=== PATIENT | female | born 1990 | race Caucasian/White ===

== ENCOUNTER 2019-08-20 12:37 | Emergency (ER) | payer MEDICAID ==
[~2019-08-20] VITALS: Ht 165.1 cm; Wt 75.0 kg
[2019-08-20 12:42] VITALS: BP 121/80
== END 2019-08-20 13:33 | disposition home or self-care (01) ==
LOC: ED 13:27
DX: H66.93 Otitis media, unspecified, bilateral (principal); R05 Cough; J45.909 Unspecified asthma, uncomplicated; F17.200 Nicotine dependence, unspecified, uncomplicated
CPT/HCPCS: 71046; 99283

== ENCOUNTER 2020-01-30 02:18 | Emergency (ER) | payer MEDICAID ==
[~2020-01-30] VITALS: Ht 167.6 cm; Wt 80.0 kg
--- NOTE | 2020-01-30 02:24 | NUR ---
Pt presents to ed c/o trying to help friend and friend fell on pt. [place] a pop on LL back and immediate shooting pain down to L knee and seizing of muscles in back. Unable to move any part of body d/t pain and ridgid in bed, talking minimally from pain. Denies incontinence. Denies numbness tingling in extremity. Able to wiggle toes and minimal movement at knee--d/t pain. Given 200 mcg fentanyl en route via ems w/ no relief. ERP at bedside upon admit to ed. Awaiting orders.
[2020-01-30] MEDS ORDERED: DIAZEPAM 5 MG/ML, 2ML ONE (02:28)
[2020-01-30] MEDS ORDERED: KETOROLAC 30 MG/1 ML ONE (02:28)
[2020-01-30] MEDS ORDERED: KETOROLAC 30 MG/1 ML IVPush ONE (02:30)
[2020-01-30] MEDS ORDERED: LIDODERM 5% PATCH TD ONE ×2 (02:30→02:40)
[2020-01-30] MEDS ORDERED: DIAZEPAM 5 MG/ML, 2ML IVPush ONE (02:30)
[2020-01-30] MEDS ORDERED: SODIUM CHLORIDE FLUSH 10ML SYR IVF ONE (02:30)
[2020-01-30 02:51] VITALS: BP 123/66
--- NOTE | 2020-01-30 02:52 | NUR ---
Pt bedside report to Nandini WELLER.
--- NOTE | 2020-01-30 03:00 | NUR ---
report from JANEE ayala
--- NOTE | 2020-01-30 04:00 | NUR ---
pt ambulatory to wheelchair independently.
--- NOTE | 2020-01-30 04:02 | NUR ---
pt sleeping on gurney. when awoken, pt sobbing. significant other here for same, discharged and taking pt to discharge desk. pt crying becuase of back pain. significant other angry at staff, saying "we should have gone to a different hospital. they didnt do shit for us here"
--- NOTE | 2020-01-30 04:22 | NUR ---
upon discharge pt ambulated to car independetly with a steady gait. pt significant other (Emir) puffing his chest at the hospital security staff and approaching them in a physically intimidating manner. pt significant other yelling at hospital security calling them "rent-a-curtain framer" and loudly, aggressively yelling "fuck you, you old ass mother fucker! fuck you!" security not responding to profanities and standing by to ensure saftey of other patients in the lobby as the pt and her significant other proceed to cause a scene in the lobby as they prepare to get into a car in the canopy and leave.
== END 2020-01-30 04:06 | disposition home or self-care (01) ==
LOC: ED 02:28
DX: S39.012A Strain of muscle, fascia and tendon of lower back, initial encounter (principal); G89.11 Acute pain due to trauma; J45.909 Unspecified asthma, uncomplicated; X58.XXXA Exposure to other specified factors, initial encounter; Y93.89 Activity, other specified; Y92.89 Other specified places as the place of occurrence of the external cause; Y99.8 Other external cause status
CPT/HCPCS: 72110; 96374; 96375; 99284; J1885; J3360